=== PATIENT | male | born 1960 | race Caucasian/White ===

== ENCOUNTER 2018-04-18 21:57 | Inpatient (IN) | payer OTHER ==
[~2018-04-18] VITALS: Ht 180.3 cm; Wt 98.0 kg
[~2018-04-18 21:57] MED LIST: ASPIR 8181 M1 PO; ELIQUIS2.5 MG PO; LIPITOR40 MG PO; LORCET 5-325 M1 EACH PO; VITAMIN B12-FO1 EACH PO
[2018-04-19 09:57] VITALS: BP 122/77
[2018-04-19 19:36] VITALS: BP 126/71
[2018-04-19 23:20] VITALS: BP 116/64
[2018-04-20 04:55] VITALS: BP 116/63
[2018-04-20 06:40] LABS: HEMATOCRIT 33.9 % (38.0-50.0); HEMOGLOBIN 11.1 G/DL (12.5-16.6); MCV 97.4 FL (86-99)
[2018-04-20 06:59] LABS: CHLORIDE 108 MEQ/L (99-109); CREATININE 1.2 MG/DL (0.6-1.3); GFR ESTIMATE (CALCULATED) > 59 mL/min/ (58.99-99999); GLUCOSE 110 mg/dL (70-99); POTASSIUM 5.3 MEQ/L (3.7-5.4); SODIUM 141 MEQ/L (136-147); UREA NITROGEN (BUN) 20 mg/dL (9-23)
[2018-04-20 08:37] VITALS: BP 128/76
[2018-04-20 12:29] VITALS: BP 128/66
[2018-04-20 16:54] VITALS: BP 123/67
== END 2018-04-20 17:57 | DRG 470 ==
LOC: ENRESERV 21:57 → 2SOUTH 04-19 08:28 → 3EAST 04-19 09:08 → 2SOUTH 04-19 09:38 → ENRESERV 04-19 17:44 → 3EAST 04-19 19:31
PROVIDERS: Orthopaedic Surgery
PROC: 0SRB03A Replacement of Left Hip Joint with Ceramic Synthetic Substitute, Uncemented, Open Approach (ICD-10-PCS; principal; 2018-04-19)
DX: M16.12 Unilateral primary osteoarthritis, left hip (principal); R73.03 Prediabetes; Z96.641 Presence of right artificial hip joint; F17.200 Nicotine dependence, unspecified, uncomplicated; Z86.711 Personal history of pulmonary embolism; Z86.718 Personal history of other venous thrombosis and embolism; Z98.1 Arthrodesis status; Z79.01 Long term (current) use of anticoagulants; Z79.82 Long term (current) use of aspirin
CPT/HCPCS: 73501; 80048; 85014; 85018; 86850; 86900; 86901; 86920; J0690; J1100; J1170; J1885; J2250; J2405; J2710; J3010; J7643; P9045